=== PATIENT | female | born 1940 | race Caucasian/White ===

== ENCOUNTER 2019-12-04 12:04 | Emergency (ER) | payer MEDICARE, BC ==
[2019-12-04 12:20] VITALS: RESP 18; TEMP 97.5
--- NOTE | 2019-12-04 12:39 | ED ---
Fall HPI - General Source: patient, RN notes reviewed Mode of arrival: wheelchair Limitations: no limitations <Silviano Keane - Last Filed: 12/04/19 14:29> <John Cuevas - Last Filed: 12/04/19 14:35> - General Chief Complaint: Fall Stated Complaint: Fall, hip pain Time Seen by Provider: 12/04/19 12:24 - History of Present Illness Initial Comments: This a 79-year-old female presents emergency Department chief complaint left hip pain. Patient states she was standing on her counter cleaning cabinets when she stepped backwards falling onto her left hip. Patient denies striking her head is no loss conscious. She states she is able to get up off the ground by herself but states today she has pain when she weightbears. She states she has mild warmth range of motion but there is no tenderness with palpation. Denies any back pain upper or lower denies any bowel, bladder incontinence or retention. Denies any right leg pain states when she moves her right leg she has pain twitching left hip. (Silviano Keane) - Related Data Previous Rx's Medication Instructions Recorded Naproxen 500 mg PO BID #14 tablet 12/04/19 Allergies Allergy/AdvReac Type Severity Reaction Status Date / Time No Known Allergies Allergy Verified 12/04/19 12:20 Review of Systems ROS Other: All systems not noted in ROS Statement are negative. <Silviano Keane - Last Filed: 12/04/19 14:29> ROS Other: All systems not noted in ROS Statement are negative. <John Cuevas - Last Filed: 12/04/19 14:35> ROS Statement: Those systems with pertinent positive or pertinent negative responses have been documented in the HPI. Past Medical History Past Medical History: Thyroid Disorder History of Any Multi-Drug Resistant Organisms: None Reported Past Surgical History: No Surgical Hx Reported Past Psychological History: No Psychological Hx Reported Smoking Status: Never smoker Past Alcohol Use History: None Reported Past Drug Use History: None Reported <Silviano Keane - Last Filed: 12/04/19 14:29> General Exam Limitations: no limitations General appearance: alert, in no apparent distress Head exam: Present: atraumatic, normocephalic, normal inspection Eye exam: Present: normal appearance, PERRL, EOMI. Absent: scleral icterus, conjunctival injection, periorbital swelling Neck exam: Present: normal inspection, full ROM. Absent: tenderness, meningismus, lymphadenopathy Respiratory exam: Present: normal lung sounds bilaterally. Absent: respiratory distress, wheezes, rales, rhonchi, stridor, chest wall tenderness Cardiovascular Exam: Present: normal rhythm, bradycardia, normal heart sounds. Absent: regular rate, systolic murmur, diastolic murmur, rubs, gallop, clicks GI/Abdominal exam: Present: soft, normal bowel sounds. Absent: distended, tenderness, guarding, rebound, rigid Extremities exam: Present: other (Left hip there is minimal discomfort palpation, pain with range of motion which is slightly limited neurovascular intact with equal pedal pulses there is no tenderness of the distal femur, lower leg region upper extremity within normal limits.) Back exam: Present: normal inspection (No ecchymosis no erythema), full ROM. Absent: tenderness, paraspinal tenderness, vertebral tenderness Neurological exam: Present: alert, oriented X3, CN II-XII intact, reflexes normal. Absent: motor sensory deficit Skin exam: Present: warm, dry, intact, normal color. Absent: rash <Silviano Keane - Last Filed: 12/04/19 14:29> Course Vital Signs 12/04/19 12:15 Temperature 97.5 F L Pulse Rate 54 L Respiratory 18 Rate Blood Pressure 147/73 O2 Sat by Pulse 97 Oximetry Medical Decision Making <Silviano Keane - Last Filed: 12/04/19 14:29> <John Cuevas - Last Filed: 12/04/19 14:35> - Medical Decision Making 79-year-old female presented for fall, left hip pain. X-ray showed possible subtle fracture CT was obtained this time it shows superior and inferior pubic rami fracture with extension into the anterior, of the acetabulum. Patient's pain is mild at this time. I did discuss the case with neck branch on-call for Dr. Jaramillo recommend the patient to be admitted for physical therapy, pain management, possible rehab did explain this to the patient and patient's daugh ter in the room who states that she does not want to be admitted she feels comfortable discharge she has an appointment with orthopedics. She was given a prescription for a walker. Return parameters were discussed. (Silviano Keane) 79-year-old female status post fall. Patient is evaluated and examined by myself. She has a left inferior and superior pubic rami fracture. She is ambulatory she is very eager for discharge. I went to examine this patient she was dressed standing at the edge of her bed waiting for her discharge paperwork. She will not stay for with peak evaluation or physical therapy evaluation. She states she will obtain a walker and will use it. (John Cuevas) Disposition Is patient prescribed a controlled substance at d/c from ED?: No Time of Disposition: 14:32 <Silviano Keane - Last Filed: 12/04/19 14:29> <John Cuevas - Last Filed: 12/04/19 14:35> Clinical Impression: Fall, Fracture of superior ramus of left pubis, Fracture of left inferior pubic ramus Disposition: HOME SELF-CARE Instructions (If sedation given, give patient instructions): Pelvic Fracture (ED) Additional Instructions: Please return to the Emergency Department if symptoms worsen or any other concerns. Prescriptions: Naproxen 500 mg PO BID #14 tablet Referrals: Rnacho Quintero MD [Primary Care Provider] - 1-2 days Denver Trinh MD [STAFF PHYSICIAN] - 1-2 days
--- NOTE | 2019-12-04 13:02 | XR ---
EXAMINATION TYPE: XR Hip LT and AP Pelvis DATE OF EXAM: 12/04/2019 COMPARISON: NONE HISTORY: Pain TECHNIQUE: A single AP view of the pelvis is obtained. Two views of the left hip are obtained. FINDINGS: There is degenerative change lower lumbar spine. Arthropathy of the SI joint. Sacral forami na appear to be symmetric. There is arthropathy hips bilaterally with protrusio noted on the right. Correlate for femoral acetab ular impingement. Osteitis pubis condensans noted. There is a subtle deformity involving the superior pubic ramus on the left. Left femoral neck appears intact. IMPRESSION: 1. Subtle deformity involving the medial margin of the superior pubic ramus on the left correlate wit h point tenderness for hairline fracture.
[2019-12-04] MEDS ORDERED: traMADol 50 MG TAB PO STA (13:14)
--- NOTE | 2019-12-04 13:37 | CT ---
EXAMINATION TYPE: CT hip LT wo con DATE OF EXAM: 12/04/2019 COMPARISON: Pain HISTORY: Fall, abn xray CT DLP: 550.5 mGycm Automated exposure control for dose reduction was used. FINDINGS: As noted on the x-ray there is a deformity involving the left superior pubic ramus. Fracture line inv olves the anterior, the acetabulum with displacement. Femoral neck remains intact. There is a mildly displaced inferior pubic ramus fracture. There is soft tissue edema. The bladder is distended. Diverticulosis of the colon and vascular calcifications incidentally noted. Arthropathy of the hip joint noted. Mild IMPRESSION: 1. There is a fracture involving the superior and inferior pubic rami. Superior pubic ramus fracture involves the anterior column of the acetabulum with displacement.
[2019-12-04 14:47] VITALS: BP 127/87; PULSE 68
== END 2019-12-04 14:46 | disposition home or self-care (01) ==
LOC: EC 12:04
DX: S32.592A Other specified fracture of left pubis, initial encounter for closed fracture (principal); S32.512A Fracture of superior rim of left pubis, initial encounter for closed fracture; W19.XXXA Unspecified fall, initial encounter
CPT/HCPCS: 73502; 99284